=== PATIENT | female | born 1990 | race Caucasian/White ===

== ENCOUNTER → 2016-07-27 | Outpatient (CLI) | payer OTHER ==
[~2016-07-27] MED LIST: BIRTH CONTROL PILL PO; COUMADIN5 MG PO; NORCO 7.5-3251 EACH PO; PHENERGAN PO; YAZ 28 TABLET1 TAB PO
--- NOTE | ~2016-07-27 | MR17 ---
[facility] A Service of [facility] RADIOLOGY TEXT RESULTS PATIENT: BEN RADFORD LOCATION: [facility] : [birth year] UNIT #: [id number] AGE: [address]: Suman Hutchins MD SEX: F ORDER DR: [id number] [place] [id number] O MR#: [id number] Acc #: [id number] NAME: BEN RADFORD : 1990 SEX: F STUDY DATE/TIME: 07/27/2016 8:50 UNIT: [facility] ROOM: STUDY DESCRIPTION: MR Brain WWo Contrast Attending Physician: Suman Hutchins M.D. Referring Physician: Suman Hutchins M.D. Ordering Physician: Suman Hutchins M.D. Primary Care Physician: Suman Hutchins M.D. MRI CENTER REPORT This report is preliminary unless electronic signature is present. EXAM Brain MRI with and without contrast, 07/27/2016. COMPARISON Head CT, dated 07/13/2008. HISTORY Recently worsening headaches, worsening of frequency, severity, and duration for 2-3 months. FINDINGS There is no MR evidence of acute ischemia or other restricted diffusion. The brain is structurally normal, and brain parenchymal signal is normal. There is no hydrocephalus or extraaxial fluid collection, and normal flow voids are seen in the cerebral vessels. The extracranial structures are normal, and bone marrow signal is normal. IMPRESSION Normal brain MRI with and without contrast. Dictated by... Mario Roth M.D. THIS IS AN ELECTRONICALLY VERIFIED REPORT Mario Roth M.D. at 07/29/2016 9:42 AM YU/josh TD: 07/27/2016 19:09 JOB #: [id number] MRI CENTER REPORT [facility] A Service of [facility] RADIOLOGY TEXT RESULTS PATIENT: BEN RADFODR LOCATION: [facility] : [birth year] UNIT #: [id number] AGE: [address]: Suman Hutchins MD SEX: F ORDER DR: Page 1 of 1
== END | disposition home or self-care (01) ==
LOC: SMRI 08:18
DX: R51 Headache (principal)
CPT/HCPCS: 70553; A9581